=== PATIENT | male | born 1935 | race Caucasian/White ===

== ENCOUNTER 2017-08-22 05:34 | Day surgery (SDC) | payer OTHER ==
[~2017-08-22] VITALS: Ht 205.7 cm; Wt 76.0 kg
[~2017-08-22 05:34] MED LIST: ASPI325; ASPI325 PO; ASPI81CH PO; BCOIRO; FISH1000; Flunisolide25 ML; GLUCHON; GLUCHON PO; LISI20 PO; MULVITMINF PO; NAPR220; NAPR220 PO
[2017-08-22] MEDS ORDERED: Toprol Xl25 MG PO (08:53)
[2017-08-22] MEDS ORDERED: Nitroglycerin0.4 MG SL (08:54)
== END 2017-08-22 11:41 | disposition home or self-care (01) ==
LOC: MHTC 05:34
PROC: B211YZZ Fluoroscopy of Multiple Coronary Arteries using Other Contrast (ICD-10-PCS; principal; 2017-08-22)
PROC: 4A023N7 Measurement of Cardiac Sampling and Pressure, Left Heart, Percutaneous Approach (ICD-10-PCS; principal; 2017-08-22)
DX: I25.119 Atherosclerotic heart disease of native coronary artery with unspecified angina pectoris (principal); I35.0 Nonrheumatic aortic (valve) stenosis; E78.00 Pure hypercholesterolemia, unspecified; I10 Essential (primary) hypertension; Z86.73 Personal history of transient ischemic attack (TIA), and cerebral infarction without residual deficits
CPT/HCPCS: 93454; 99152; 99153; C1769; C1894; J1644; J2250; J3010; J7030; Q9967

== ENCOUNTER 2023-10-22 10:14 | Emergency (ER) | payer OTHER ==
[~2023-10-22] VITALS: Ht 175.3 cm; Wt 72.6 kg
[2023-10-22 11:03] LABS: BASOPHILS ABSOLUTE AUTO 0.02 K/mm3 (0.00-0.23); BASOPHILS PERCENT AUTO 0 % (0-2); EOSINOPHILS ABSOLUTE AUTO 0.07 K/mm3 (0.00-0.68); EOSINOPHILS PERCENT AUTO 1 % (0-6); IMMATURE GRAN ABSOLUTE AUTO 0.01 K/mm3 (0.00-0.10); IMMATURE GRAN PERCENT AUTO 0 % (0-1); LYMPHOCYTES ABSOLUTE AUTO 2.41 K/mm3 (0.84-5.20); LYMPHOCYTES PERCENT AUTO 40 % (21-46); MONOCYTES ABSOLUTE AUTO 0.51 K/mm3 (0.16-1.47); MONOCYTES PERCENT AUTO 9 % (4-13); Mean Corpuscular HGB 30.4 pg (26.0-34.0); Mean Corpuscular HGB Conc 34.1 g/dL (31.5-36.5); Mean Corpuscular Volume 89 fL (80-100); NEUTROPHILS ABSOLUTE AUTO 2.95 K/mm3 (1.96-9.15); NEUTROPHILS PERCENT AUTO 49 % (41-73); Platelet Count 174 K/mm3 (150-400); RDW Standard Deviation 46.1 fL (35.1-46.3); Red Blood Cell Count 4.93 M/mm3 (4.30-5.90); White Blood Cell Count 5.97 K/mm3 (4.00-11.30)
[2023-10-22 11:15] LABS: Albumin, Blood 3.7 g/dL (3.4-5.0); Bilirubin, Total 0.6 mg/dL (0.1-1.0); Bun/Creatinine Ratio 21.2 (12.0-20.0); Calcium, Blood 9.2 mg/dL (8.5-10.1); Creatinine, Blood 0.99 mg/dL (0.60-1.20); Globulin, Blood 3.6 g/dL (2.2-4.0); Potassium, Blood 4.7 mmol/L (3.5-5.5); Total Protein, Blood 7.3 g/dL (6.4-8.2)
[2023-10-22 14:22] LABS: Source, Urine Clean Catch
[2023-10-22 14:26] LABS: Appearance, Urine Clear (Clear); Bilirubin, Urine Neg (Neg); Blood, Urine Neg (Neg); Color, Urine Yellow (P-Yellow); Glucose Qualitative, Urine Neg (Neg); Ketones, Urine 2+ (Neg); Leukocyte Esterase, Urine Neg (Neg); Nitrite, Urine Neg (Neg); Protein, Urine Neg (Neg); Urobilinogen, Urine NORM (Normal)
[2023-10-22 15:17] VITALS: BP 157/81
== END 2023-10-22 15:27 | disposition home or self-care (01) ==
LOC: ER 10:14
PROVIDERS: Emergency Medicine
DX: R07.89 Other chest pain (principal); R00.2 Palpitations; I25.2 Old myocardial infarction; Z86.73 Personal history of transient ischemic attack (TIA), and cerebral infarction without residual deficits; Z79.82 Long term (current) use of aspirin; Z88.5 Allergy status to narcotic agent; Z88.8 Allergy status to other drugs, medicaments and biological substances
CPT/HCPCS: 71045; 80053; 81003; 84484; 85025; 93005; 93010; 93242; 99285-25

== ENCOUNTER → 2023-10-22 | Outpatient (CLI) | payer OTHER ==
[~2023-10-22] MED LIST changes: +Nitroglycerin0.4 MG SL; +Toprol Xl25 MG PO
[2023-10-22 10:03] LABS: BASOPHILS ABSOLUTE AUTO 0.03 K/mm3 (0.00-0.23); BASOPHILS PERCENT AUTO 1 % (0-2); EOSINOPHILS PERCENT AUTO 2 % (0-6); Hematocrit 45.1 % (37.0-53.0); Hemoglobin 14.9 g/dL (13.5-17.5); IMMATURE GRAN ABSOLUTE AUTO 0.01 K/mm3 (0.00-0.10); IMMATURE GRAN PERCENT AUTO 0 % (0-1); LYMPHOCYTES ABSOLUTE AUTO 2.51 K/mm3 (0.84-5.20); LYMPHOCYTES PERCENT AUTO 43 % (21-46); MONOCYTES PERCENT AUTO 9 % (4-13); Mean Corpuscular Volume 91 fL (80-100); Mean Platelet Volume 9.1 fL (9.1-12.4); NEUTROPHILS ABSOLUTE AUTO 2.67 K/mm3 (1.96-9.15); NEUTROPHILS PERCENT AUTO 46 % (41-73); Platelet Count 157 K/mm3 (150-400); RDW Coefficient Variation 14.2 % (11.7-14.2); RDW Standard Deviation 46.9 fL (35.1-46.3); Red Blood Cell Count 4.97 M/mm3 (4.30-5.90); White Blood Cell Count 5.82 K/mm3 (4.00-11.30)
[2023-10-22 10:13] LABS: Albumin, Blood 3.7 g/dL (3.4-5.0); Albumin/Globulin Ratio 0.9 (0.8-1.8); Bilirubin, Total 0.6 mg/dL (0.1-1.0); Bun/Creatinine Ratio 18.6 (12.0-20.0); Calcium, Blood 9.2 mg/dL (8.5-10.1); Creatinine, Blood 1.13 mg/dL (0.60-1.20); Globulin, Blood 3.9 g/dL (2.2-4.0); Potassium, Blood 4.3 mmol/L (3.5-5.5); Total Protein, Blood 7.6 g/dL (6.4-8.2)
== END | disposition home or self-care (01) ==
LOC: LAB 09:57 → LAB SHORT 09:57
PROVIDERS: Physician Assistant
DX: R07.89 Other chest pain (principal)
CPT/HCPCS: 80053; 84484; 85025

== ENCOUNTER 2023-12-20 05:49 | Day surgery (SDC) | payer OTHER ==
[~2023-12-20] VITALS: Ht 172.7 cm; Wt 77.0 kg
[2023-12-20] VITALS (9 sets, daily range): BP systolic 108–153; BP diastolic 56–137
[2023-12-20] MEDS ORDERED: CeFAZolin Sodium 1000 mg Vial ONE (06:26)
[2023-12-20] MEDS ORDERED: NS 1,000 ML IV ONE ×2 (06:27→07:04)
[2023-12-20] MEDS ORDERED: Heparin Sodium 1000 Units/ML 10ML MDV ONE ×2 (06:27→06:29)
[2023-12-20] MEDS ORDERED: Midazolam HCl 1MG / ML 2ML Vial ONE (07:03)
[2023-12-20] MEDS ORDERED: FentaNYL Citrate 50 MCG/ML 2 ML Injection ONE (07:04)
[2023-12-20] MEDS ORDERED: NS 100 ML IV ONE (07:06)
[2023-12-20] MEDS ORDERED: CeFAZolin Sodium 2,000 MG VIAL ONE (07:06)
[2023-12-20] MEDS ORDERED: HydrALAZINE HCl 20 MG / ML 1ML Vial ONE (08:05)
--- NOTE | 2023-12-20 09:40 | NUR ---
Pt back to recovery room, sitting up in recliner. Pt educated about L arm restrictions and demonstrates understanding. Pt given coffee and breakfast tray. Sts has a friend to pick him up when time. Dressing to L chest is clean, dry and intact. ice pack applied.
--- NOTE | 2023-12-20 10:13 | NUR ---
PT TO IMAGING.
--- NOTE | 2023-12-20 10:50 | NUR ---
OOZING NOTED ON DRESSING. DR HILLS NOTIFIED. PT RECLINED BACK AND 2LB WEIGHT PLACED OVER ICE PACK AND DRESSING. PT FINISHED BREAKFAST. UPDATED SPOUSE ON PHONE.
--- NOTE | 2023-12-20 11:45 | NUR ---
DR HILLS IN TO SEE PT. DRESSING HAS SMALL AMOUNT OF BLOOD, BUT HAS NOT GROWN. OKAY FOR PT TO BE D/C. PT TO CALL RIDE. [employer] CHECKED AND VARIVIED BY REP.
--- NOTE | 2023-12-20 12:23 | NUR ---
pt wheeled out to ride. pt verbalized d/c instructions. IV D/C catheter intact. Pt demonstrates correct l arm precautions. l arm in sling. ice pace home with pt.
== END 2023-12-20 12:15 | disposition home or self-care (01) ==
LOC: MHTC 05:49
DX: I44.1 Atrioventricular block, second degree (principal); I35.0 Nonrheumatic aortic (valve) stenosis; G45.9 Transient cerebral ischemic attack, unspecified; R55 Syncope and collapse; E78.5 Hyperlipidemia, unspecified; I10 Essential (primary) hypertension; Z79.82 Long term (current) use of aspirin; Z88.5 Allergy status to narcotic agent; Z88.8 Allergy status to other drugs, medicaments and biological substances
CPT/HCPCS: 33208; 71046; 99152; 99153; C1785; C1894; C1898; J0360; J0690; J1644; J2250; J3010; J7030; J7040; Q9967